=== PATIENT | female | born 1950 | race Caucasian/White ===

== ENCOUNTER 2024-02-25 07:09 | Day surgery (SDC) | payer MEDICARE, BC ==
[2024-02-25] VITALS (13 sets, daily range): BP systolic 96–139; BP diastolic 57–92
[~2024-02-25] VITALS: Ht 157.5 cm; Wt 62.6 kg
[~2024-02-25 07:09] MED LIST: ESTRADIOL42.5 GM VAG; Lactated Ringer's 1,000 ML IV SCH
[2024-02-25] MEDS ORDERED: Dexmedetomidine HCL 200 MCG / 2 ML ONE (07:35)
[2024-02-25] MEDS ORDERED: propofoL 100 ML IV ONE (07:36)
[2024-02-25] MEDS ORDERED: Ketorolac Tromethamine 30mg Vial ONE (07:39)
[2024-02-25] MEDS ORDERED: Metoclopramide HCl 5MG / ML 2ML Vial ONE (07:39)
[2024-02-25] MEDS ORDERED: Dexamethasone Sod Phos 10 MG/ML 1ML VIAL ONE (07:39)
[2024-02-25] MEDS ORDERED: Ondansetron HCl 2 MG / ML 2ML Vial ONE (07:39)
[2024-02-25] MEDS ORDERED: Sugammadex Sodium 200 MG/2ML SDV (100 MG/ML) ONE (07:39)
[2024-02-25] MEDS ORDERED: Rocuronium Bromide 10 MG/ML 5ML Injection IV ONE (07:39)
[2024-02-25] MEDS ORDERED: HYDROmorphone HCl/Pf 1MG SYR ONE (07:39)
--- NOTE | 2024-02-25 07:46 | NUR ---
Ambulatory in Day Surgery WITH STEADY GAIT. History, Chart, Medications and Allergies reviewed before start of procedure. Patient States Post-Procedure ride home has been arranged WITH FRIEND. PARTIAL REMOVED AND PLACED IN PT'S PURSE, GLASSES ALSO REMOVED AND PLACED IN PURSE. Pre-Op teaching done. Pt verbalizes understanding. WARM BLANKET PROVIDED, CALL LIGHT IN PLACE.
[2024-02-25] MEDS ORDERED: Acetaminophen 500 MG Tab PO SCH (07:55)
[2024-02-25] MEDS ORDERED: Lidocaine 1%-Epineph 1:100000 20 ML MDV INJ ONE ×2 (08:17)
[2024-02-25] MEDS ORDERED: Phenylephrine HCl 100 MCG/ML-NS 10MLSYR (1MG/10ML) ONE (08:31)
[2024-02-25] MEDS ORDERED: OxyCODONE HCL 5 MG TAB PO PRN (09:00)
[2024-02-25] MEDS ORDERED: FLU VACC TS2024-25(6MOS UP)/PF 45 MCG/0.5 ML SYRINGE IM ONE (09:00)
[2024-02-25] MEDS ORDERED: Ondansetron HCl 2 MG / ML 2ML Vial IV PRN (09:00)
[2024-02-25] MEDS ORDERED: DiphenhydrAMINE HCL 25 MG Cap PO PRN (09:00)
[2024-02-25] MEDS ORDERED: Metoclopramide HCl 10 MG Tab PO PRN (09:05)
[2024-02-25] MEDS ORDERED: Ketorolac Tromethamine 30mg Vial IV PRN (09:05)
[2024-02-25] MEDS ORDERED: Simethicone 80 MG Chew PO PRN (09:05)
--- NOTE | 2024-02-25 14:44 | NUR ---
DISCHARGE VOIDED, BLADDER SCAN WNL, EATING & DRINKING WELL. IND TO AMBULATE. DECLINES WC & AMBULATES OUT EASILY.
== END 2024-02-25 15:09 | disposition home or self-care (01) ==
LOC: ORSCMMR 07:09 → SURS 09:31 → ORSCMMR 09:45 → ORD 09:45 → ORSCMMR 15:09
PROVIDERS: Obstetrics & Gynecology
PROC: 0JQC0ZZ Repair Pelvic Region Subcutaneous Tissue and Fascia, Open Approach (ICD-10-PCS; principal; 2024-02-25 08:30)
DX: N81.89 Other female genital prolapse (principal); Z86.16 Personal history of COVID-19; Z79.899 Other long term (current) drug therapy
CPT/HCPCS: A9270; J1100; J1171; J1885; J2371; J2405; J2704; J2765; J7120